=== PATIENT | female | born 2000 | race Caucasian/White ===

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

== ENCOUNTER 2021-08-05 05:00 | Emergency (ER) | payer OTHER ==
[~2021-08-05] VITALS: Ht 167.6 cm; Wt 59.0 kg
[2021-08-05 05:08] VITALS: BP 110/66
--- NOTE | 2021-08-05 05:08 | NUR ---
TO BED AMBULATORY
--- NOTE | 2021-08-05 05:30 | NUR ---
21 YO F BIB SELF WITH C/C OF 9/10 H/A X2DAYS WITH LIGHT AND SOUND SENSITIVITY. PT REPORTS 8/10 MID ABD PAINXTODAY. REPORTS DECREASED APPETITE. +N/V XYESTERDAY. +DIARRHEA XTODAY. ABD IS SOFT AND FLAT. BOWEL SOUNDS ACTIVE X4 QUADS. LMP MID JUNE. REPORTS NOSE BLEEDS. HX:ANEMIA RX:IRON NKA
--- NOTE | 2021-08-05 05:46 | NUR ---
PT REPORTS INCREASED URGENCY TO URINATE AND HESISTENCY.
--- NOTE | 2021-08-05 06:39 | NUR ---
ermd at bedside.
[2021-08-05] MEDS ORDERED: SUMAtriptan succinate 50 MG TAB PO ONE (06:40)
[2021-08-05] MEDS ORDERED: ACETAMINOPHEN EXTRA STRENGTH 500 MG TAB PO ONE (06:40)
[2021-08-05] MEDS ORDERED: METOCLOPRAMIDE 10 MG/2 ML INJ VIAL IVP ONE (06:40)
[2021-08-05] MEDS ORDERED: NACL 0.9% 1,000 ML IV ONE (06:40)
[2021-08-05] MEDS ORDERED: KETOROLAC 30 MG/ML VIAL IVP ONE (06:40)
[2021-08-05] MEDS ORDERED: IBUP-2213 PO (06:50)
[2021-08-05] MEDS ORDERED: IMI25 PO (06:50)
[2021-08-05] MEDS ORDERED: METO-486 PO (06:50)
--- NOTE | 2021-08-05 07:18 | NUR ---
Pt report given to LYRIC NICOLE. Transfer of care at this time.
[2021-08-05 08:34] VITALS: BP 109/62
--- NOTE | 2021-08-05 08:36 | NUR ---
Patient discharged with v/s stable. Written and verbal after care instructions given and explained. Patient alert, oriented and verbalized understanding of instructions. Ambulatory with steady gait. All questions addressed prior to discharge. ID band removed. Patient advised to follow up with PMD. Rx of IMITREX, REGLAN, given. Patient educated on indication of medication including possible reaction and side effects. Opportunity to ask questions provided and answered.
== END 2021-08-05 08:34 | disposition home or self-care (01) ==
LOC: MED 05:00
DX: G43.009 Migraine without aura, not intractable, without status migrainosus (principal); R11.2 Nausea with vomiting, unspecified; Z79.899 Other long term (current) drug therapy
CPT/HCPCS: 81002; 81025; 96361; 96374; 96375; 99284; J1885; J2765; J7030